=== PATIENT | male | born 1970 | race Caucasian/White ===

== ENCOUNTER 2017-08-25 18:03 | Emergency (ER) | payer SELFPAY | END 2017-08-25 19:19 | disposition home or self-care (01) | LOC: ED 18:16 | DX: Z02.9 Encounter for administrative examinations, unspecified (principal) ==

== ENCOUNTER 2017-08-28 00:25 | Emergency (ER) | payer SELFPAY ==
[~2017-08-28] VITALS: Ht 167.6 cm; Wt 77.5 kg
[2017-08-28 00:27] VITALS: BP 145/89
== END 2017-08-28 01:32 | disposition home or self-care (01) ==
LOC: ED 00:49
DX: T69.022A Immersion foot, left foot, initial encounter (principal); T69.021A Immersion foot, right foot, initial encounter; F17.200 Nicotine dependence, unspecified, uncomplicated
CPT/HCPCS: 99281

== ENCOUNTER 2017-09-04 00:19 | Emergency (ER) | payer SELFPAY | END 2017-09-04 00:37 | disposition left against medical advice (07) | LOC: ED 00:23 | DX: Z53.21 Procedure and treatment not carried out due to patient leaving prior to being seen by health care provider (principal) ==

== ENCOUNTER 2019-09-28 03:16 | Emergency (ER) | payer MEDICAID ==
[~2019-09-28] VITALS: Ht 177.8 cm; Wt 83.0 kg
[2019-09-28 03:20] VITALS: BP 102/60
--- NOTE | 2019-09-28 04:19 | NUR ---
Patient into room, complaing of foot pain after some running and jumping with some friends. No obvious swelling or deformity. No clear cause of trauma to the area. Midlevel provider to bedside, assessment complete. Patient provided additional shoes to assist with the situation. Awaiting on imaging read.
== END 2019-09-28 05:11 | disposition home or self-care (01) ==
LOC: ED 04:11
DX: S93.602A Unspecified sprain of left foot, initial encounter (principal); X58.XXXA Exposure to other specified factors, initial encounter; Y93.9 Activity, unspecified; Y92.098 Other place in other non-institutional residence as the place of occurrence of the external cause; Y99.8 Other external cause status
CPT/HCPCS: 99283